=== PATIENT | female | born 1955 | race Caucasian/White ===

== ENCOUNTER → 2018-03-12 16:49 | Outpatient (CLI) | payer BC, SELFPAY | PROVIDERS: Visit Provider Physician Assistant | DX: N89.8 Other specified noninflammatory disorders of vagina (principal) | CPT/HCPCS: 87210 ==

== ENCOUNTER → 2018-04-19 08:31 | Outpatient (CLI) | payer BC, SELFPAY ==
[2018-04-19 09:39] LABS: Appearance Urine UA CLEAR; Bilirubin Urine UA NEGATIVE (NEGATIVE); Color Urine UA YELLOW; Glucose Urine UA NEGATIVE (Negative); Ketones Urine UA NEGATIVE (NEGATIVE); Leukocyte Esterase Urine UA TRACE (NEGATIVE); Nitrite Urine UA NEGATIVE (Negative); Occult Blood Urine UA TRACE-LYSED (Negative); Protein Urine UA NEGATIVE (Negative); Specific Gravity Urine UA 1.025 (1.000-1.035); Urobilinogen Urine UA 0.2 E.U./dL (0.2); pH Urine UA 5.5 (4.5-8.0)
[2018-04-19 09:44] LABS: Add Manual Diff / Slide Review NO; Basophils Percent Auto 1.3 % (0-2); Eosinophils Percent Auto 3.5 % (2-4); Hematocrit 39.7 % (36-46); Hemoglobin 13.1 g/dL (12.0-16.0); Lymphocytes Percent Auto 33.3 % (25-40); Mean Corpuscular HGB Conc 33.2 % (30-36); Mean Corpuscular Hemoglobin 29.5 PG (26-34); Monocytes Percent Auto 8.1 % (3-14); Neutrophils Absolute Auto 2900 /uL (1500-7000); Neutrophils Percent Auto 53.8 % (50-75); Platelet Count 231 X10^3/uL (150-400); Red Blood Cell Count 4.46 X10^6/uL (4.0-5.2); Red Cell Distribution Width 13.4 % (11.6-14.8); White Blood Cell Count 5.4 X10^3/uL (4.5-11.0)
[2018-04-19 09:45] LABS: RBC Urine None Seen (0-5/HPF)
[2018-04-19 09:48] LABS: Amorphous Sediment Urine 1+; Bacteria Urine Few (2-10); Culture Indicated Urine Specimen Cultured; Mucus Urine 1+ (Negative); WBC Urine 0-1/HPF (0-5/HPF)
[2018-04-19 09:59] LABS: Alanine Aminotransferase 26 IU/L (9-52); Albumin 4.1 g/dL (3.5-5.0); Albumin Globulin Ratio 1.6 (1.0-2.8); Alkaline Phosphatase 55 U/L (38-126); Aspartate Aminotransferase 27 IU/L (14-36); BUN Creatinine Ratio 26.7 (6-22); Bilirubin Total 0.5 mg/dL (0.2-1.3); Blood Urea Nitrogen 16 mg/dL (7-17); Calcium 9.1 mg/dL (8.4-10.2); Carbon Dioxide 29 mmol/L (22-32); Chloride 103 mmol/L (98-107); Cholesterol 226 mg/dL (140-199); Estimated Glomerular Filt Rate > 60.0 mL/min (>60); Globulin 2.5 g/dL (1.7-4.1); Glucose 87 mg/dL (80-110); HDL Cholesterol 92 mg/dL (40-60); HEMOLYSIS < 15 (0-50); LDL Cholesterol Calculated 123 mg/dL (<100); Potassium 4.3 mmol/L (3.4-5.1); Sodium 139 mmol/L (137-145); Total Protein 6.6 g/dL (6.3-8.2); Triglycerides 55 mg/dL (35-150)
[2018-04-19 11:19] LABS: Thyroid Stimulating Hormone 2.93 uIU/mL (0.47-4.68)
== END ==
PROVIDERS: Visit Provider Family Medicine
DX: G47.00 Insomnia, unspecified (principal); I10 Essential (primary) hypertension; Z13.220 Encounter for screening for lipoid disorders; Z13.29 Encounter for screening for other suspected endocrine disorder
CPT/HCPCS: 36415; 80053; 80061; 81003; 81015; 84443; 85025; 87086

== ENCOUNTER → 2018-06-25 14:11 | Outpatient (CLI) | payer BC, SELFPAY ==
--- NOTE | 2018-06-25 14:13 | DI.MG.S_ITS ---
BILATERAL DIGITAL SCREENING MAMMOGRAM 3D/2D WITH CAD: 06/25/2018 CLINICAL: Routine screening. Baseline exam. Family history of breast cancer. No prior exams were available for comparison. There are scattered fibroglandular elements in both breasts. Current study was also evaluated with a Computer Aided Detection (CAD) system. There is an equal density asymmetry in the left breast posterior depth lateral region seen on the craniocaudal view only. No other significant masses, calcifications, or other findings are seen in either breast. IMPRESSION: INCOMPLETE: NEEDS ADDITIONAL IMAGING EVALUATION The equal density asymmetry in the left breast is indeterminate. Additional views with possible ultrasound are recommended. This exam was interpreted at Station ID: [id number]. NOTE: For mammograms, a report in lay terms will be sent to the patient. Approximately 15% of breast malignancies will not be visualized mammographically. In the management of a palpable breast mass, a negative mammogram must not discourage biopsy of a clinically suspicious lesion. Electronically Signed By: Gino schmitt/petrona:06/25/2018 17:00:05 letter sent: Additional Imaging Needed ACR BI-RADS Category 0: Incomplete [id number]
== END ==
PROVIDERS: PCP Family Medicine; Visit Provider Family Medicine
DX: Z12.31 Encounter for screening mammogram for malignant neoplasm of breast (principal); Z80.3 Family history of malignant neoplasm of breast
CPT/HCPCS: 77063; 77067

== ENCOUNTER → 2018-10-12 07:58 | Outpatient (CLI) | payer BC, SELFPAY ==
--- NOTE | 2018-10-12 08:00 | DI.US.S_ITS ---
ULTRASOUND OF LEFT BREAST: 10/12/2018 CLINICAL: Additional evaluation requested from prior study. Comparison is made to exams dated: 10/12/2018 mammogram and 06/25/2018 mammogram - [facility]. Color flow and real-time ultrasound of the left breast were performed. Tavera scale images of the real-time examination were reviewed. Normal fibroglandular tissue is seen in the upper outer quadrant. No abnormalities were seen sonographically in the left breast. IMPRESSION: PROBABLY BENIGN Partially resolved mammographic asymmetry has no sonographic correlate. A follow-up left mammogram in 6 months is recommended to demonstrate stability of this area. Findings and recommendations were conveyed to the patient at time of exam. This exam was interpreted at Station ID: [id number]. Electronically Signed By: Elean hermosillo/:10/12/2018 09:16:50 letter sent: Followup Recommended Ultrasound BI-RADS: 3 Probably benign
--- NOTE | 2018-10-12 08:00 | DI.MG.S_ITS ---
UNILATERAL LEFT DIGITAL DIAGNOSTIC MAMMOGRAM 3D/2D WITH ADDITIONAL VIEWS: 10/12/2018 CLINICAL: Additional evaluation requested from prior study. Comparison is made to exam dated: 06/25/2018 [facility]. There are scattered fibroglandular elements in left breast. There is an equal density asymmetry in the left breast posterior depth lateral region seen on the craniocaudal view only on screening mammography. With focal spot compression, and additional views, this abnormality partially resolves. No associated architectural distortion. No other significant masses or calcifications are seen in the breast. IMPRESSION: INCOMPLETE: NEEDS ADDITIONAL IMAGING EVALUATION Partial resolution of screening mammography abnormality with additional views. Ultrasound evaluation to confirm resolution is recommended and was performed immediately following this exam. This exam was interpreted at Station ID: [id number]. NOTE: For mammograms, a report in lay terms will be sent to the patient. Approximately 15% of breast malignancies will not be visualized mammographically. In the management of a palpable breast mass, a negative mammogram must not discourage biopsy of a clinically suspicious lesion. Electronically Signed By: Elena hermosillo/:10/12/2018 09:14:00 ACR BI-RADS Category 0: Incomplete [id number]
== END ==
PROVIDERS: PCP Family Medicine; Visit Provider Family Medicine
DX: R92.8 Other abnormal and inconclusive findings on diagnostic imaging of breast (principal); N64.89 Other specified disorders of breast
CPT/HCPCS: 76642; 77065; G0279

== ENCOUNTER 2019-08-25 11:24 | Observation (INO) | payer MEDICARE, OTHER, SELFPAY ==
[2019-08-25] VITALS (10 sets, daily range): BP systolic 121–153; BP diastolic 72–101; PULSE 45–84; RESP 12–20; TEMP 36.2–36.9; O2SAT 96–100; BMI 24.0
--- NOTE | 2019-08-25 11:31 | DI.RAD.S_ITS ---
PROCEDURE: XR CHEST 1V INDICATIONS: chest pain TECHNIQUE: One view of the chest was acquired. COMPARISON: None. FINDINGS: Surgical changes and devices: None. Lungs and pleura: Lungs are clear. No pleural effusions or pneumothorax. Mediastinum: Mediastinal contours appear normal. Heart size is normal. Atherosclerotic calcification of the aortic arch is noted. Bones and chest wall: No suspicious bony lesions. Overlying soft tissues appear unremarkable. IMPRESSION: Normal portable chest for age. Dictated by: Raymundo Velasquez M.D. on 08/25/2019 at 11:24 Approved by: Raymundo Velasquez M.D. on 08/25/2019 at 11:24
[2019-08-25 11:55] LABS: Add Manual Diff / Slide Review NO; Basophils Absolute Auto 200 /uL (0-100); Basophils Percent Auto 2.3 % (0-2); Eosinophils Absolute Auto 200 /uL (0-450); Eosinophils Percent Auto 2.7 % (2-4); Hematocrit 39.8 % (36-46); Hemoglobin 13.4 g/dL (12.0-16.0); Lymphocytes Absolute Auto 1600 /uL (1100-4500); Lymphocytes Percent Auto 21.7 % (25-40); Mean Corpuscular HGB Conc 33.8 % (30-36); Mean Corpuscular Volume 88.8 fL (80-100); Monocytes Absolute Auto 500 /uL (0-900); Neutrophils Absolute Auto 5000 /uL (1500-7000); Neutrophils Percent Auto 66.3 % (50-75); Platelet Count 218 X10^3/uL (150-400); Red Blood Cell Count 4.48 X10^6/uL (4.0-5.2); Red Cell Distribution Width 13.3 % (11.6-14.8); White Blood Cell Count 7.5 X10^3/uL (4.5-11.0)
[2019-08-25 12:05] LABS: INR 0.9 (0.9-1.3); Prothrombin Time 10.7 SECONDS (10.1-12.7)
[2019-08-25 12:08] LABS: PTT Partial Thromboplastin Tim 33 SECONDS (26.4-36.2)
[2019-08-25 12:09] LABS: Alanine Aminotransferase 14 IU/L (<35); Albumin 4.4 g/dL (3.5-5.0); Albumin Globulin Ratio 1.5 (1.0-2.8); Alkaline Phosphatase 79 U/L (38-126); Aspartate Aminotransferase 28 IU/L (14-36); BUN Creatinine Ratio 23.9 (6-22); Bilirubin Total 0.3 mg/dL (0.2-1.3); Blood Urea Nitrogen 17 mg/dL (7-17); Calcium 9.9 mg/dL (8.4-10.2); Carbon Dioxide 27 mmol/L (22-32); Chloride 103 mmol/L (98-107); Creatine Kinase 114 U/L (30-135); Estimated Glomerular Filt Rate > 60.0 mL/min (>60); Globulin 2.9 g/dL (1.7-4.1); Glucose 109 mg/dL (80-110); HEMOLYSIS < 15 (0-50); Lipase 64 U/L (23-300); Potassium 4.5 mmol/L (3.4-5.1); Sodium 137 mmol/L (137-145); Total Protein 7.3 g/dL (6.3-8.2)
[2019-08-25 12:21] LABS: Troponin I < 0.012 ng/mL (0.01-0.034)
[2019-08-25 12:24] LABS: CKMB % Relative Index 0.8 % (1.5-5.0); Creatine Kinase MB 0.95 ng/mL (<2.37)
--- NOTE | 2019-08-25 12:43 | ED_ITS ---
HPI - Chest Pain <PATRICIA Asif - Last Filed: 08/25/19 22:08> General Chief Complaint: Chest Pain Stated Complaint: chest pressure x3 days Time Seen by Provider: 08/25/19 11:32 Source: patient Mode of arrival: Family Vehicle Limitations: no limitations History of Present Illness HPI narrative: 64yo female with a history of hypertension, presents to the emergency department after being seen by her PCP for intermittent chest pressure for the past 5 months. She states this started back in April but ?I did not pay attention to it because I had so much going on ?. Patient reports her dad was recently diagnosed with COVID and June, she states she had symptoms a week after (such as fatigue and headache) but those resolved. However recently she noticed that her substernal-epigastric 6/10 pain that is worsened over the past 3 days. Patient reported she noticed a increases when she walks up the stairs or takes a walker outside. She denies any shortness of breath during these episodes but does states she has intermittent nausea. Patient denies any alleviating symptoms but states and noticed it less when I am not walking ?. Patient denies diaphoresis, dizziness, abdominal pain, vomiting, diarrhea, fevers, shortness of breath, or any other concerns. Patient states she currently has 4-10 epigastric chest pressure at this time. Patient denies taking any blood thinners. Related Data Previous Rx's Medication Instructions Recorded adjuvant AS01B (PF)vial 1 of 2 0.5 ml IM ONCE #0.5 ml 04/23/18 diph,pertuss(acel),tet vac(PF) 0.5 ml IM ONCE #0.5 ml 04/23/18 fluoxetine 10 mg tablet 10 mg PO DAILY #90 tab 05/06/19 lisinopril 20 mg tablet 20 mg PO DAILY #90 tab 05/06/19 zolpidem 10 mg tablet 10 mg PO BEDTIME PRN #90 tab 07/02/19 Allergies Allergy/AdvReac Type Severity Reaction Status Date / Time No Known Drug Allergies Allergy Verified 08/25/19 11:43 Review of Systems <PATRICIA Asif - Last Filed: 08/25/19 22:08> Review of Systems Narrative: REVIEW OF SYSTEMS: GENERAL: Denies fever or chills. HENT: No head trauma, hearing loss or sore throat. EYES: No vision changes. CARDIOVASCULAR: Reports chest pressure, see HPI. RESPIRATORY: No shortness of breath or cough. GASTROINTESTINAL: No nausea, vomiting, diarrhea, or constipation. GENITOURINARY: No flank pain or dysuria. MUSCULOSKELETAL: No pain, weakness, or deformities. INTEGUMENTARY: No rash, lesions, or pruritus. NEURO: No numbness, tingling, no headaches at this time. PSYCH: Reports increased stressors, see HPI. Patient History <PATRICIA Asif - Last Filed: 08/25/19 22:08> Medical History Chicken pox (Resolved) Depression (Chronic) Hepatitis A (Resolved 1971) HTN (hypertension) (Chronic) Insomnia (Chronic) Measles (Resolved) Surgical History No history of previous surgery (Resolved 03/05/18) Family History Father Heart disease Mother Hypertension Brother No problems noted. Sister No problems noted. Sister No problems noted. Social History household members: spouse Smoking Status: Never smoker alcohol intake: current Smoking Status: Never smoker alcohol intake frequency: 0-2 drinks per day Substance Use Type: does not use Exam <PATRICIA Asif - Last Filed: 08/25/19 22:08> Initial Vital Signs Initial Vital Signs: Vital Signs Temperature 98.4 F 08/25/19 11:32 Pulse Rate 56 L 08/25/19 11:32 Respiratory Rate 20 08/25/19 11:32 Blood Pressure 153/81 H 08/25/19 11:32 Pulse Oximetry 99 08/25/19 11:32 PHYSICAL EXAMINATION: GENERAL: Well groomed, alert, and cooperative. Skinny. Answers questions promptly and appropriately. Vital signs noted. HENT: Normocephalic, atraumatic. Ear canals patent. Oral mucosa is pink and moist. EYES: Conjunctiva pink, sclera white, no periorbital swelling. CHEST: Normal to inspection and without deformities. CARDIOVASCULAR: S1 and S2 sounds normal. Regular rate and rhythm, no murmurs, clicks, or bruits. No pedal edema. RESPIRATORY: Normal respiratory rate, trachea midline, airway patent. No stridor, nasal flaring or accessory muscle use. Lungs are clear in all dennis without wheeze, rhonchi, or crackles. GASTROINTESTINAL: Bowel sounds normoactive. Abdomen is soft and non-tender. No organomegaly. MUSCULOSKELETAL: Normal gait and coordination. Equal tone and mass bilaterally. EXTREMITIES: CMS intact. Moves all extremities. SKIN: Warm, dry, soft, appropriate color for ethnicity. No lesions, rashes, or wounds. NEURO: Alert and Oriented X 3. Good coordination. No ataxia, or sensory deficits, or cognitive issues. PSYCH: Appropriate affect and mood. <Zack Mullen MD - Last Filed: 08/26/19 19:35> Initial Vital Signs Initial Vital Signs: Vital Signs Temperature 98.4 F 08/25/19 11:32 Pulse Rate 56 L 08/25/19 11:32 Respiratory Rate 20 08/25/19 11:32 Blood Pressure 153/81 H 08/25/19 11:32 Pulse Oximetry 99 08/25/19 11:32 Scores <PATRICIA Asif - Last Filed: 08/25/19 22:08> HEART Score Heart Score history: Moderately Suspicious Heart Score EKG: Normal Heart Score Age: > or = 65 years old Heart Score risk factors: 1-2 risk factors Heart Score troponin: < or = to normal limit Heart Score Total: 4 Course <PATRICIA Asif - Last Filed: 08/25/19 22:08> Course Course Narrative: 1400: Patient re-evaluated at this time, states she did not get nitroglycerin she no longer has chest pain at this time. 1420: Spoke with Dr. Carter, discussed patient's symptoms, test results, medical history. Dr. Carter accepts for admission to obs. Patient form that she will be admitted, she is agreeable to plan of care. Orders Ordered: Discontinued Medications Acetaminophen (Tylenol) 650 mg PO Q6HR PRN PRN Reason: Fever/Mild Pain (1-3) Last Admin: 08/26/19 13:38 Dose: 650 mg Documented by: Admin: 08/25/19 19:40 Dose: 650 mg Documented by: IESHA Aspirin (Aspirin Chew) 324 mg PO NOW ONE Stop: 08/25/19 12:35 Last Admin: 08/25/19 13:00 Dose: 324 mg Documented by: JENNIFER Enoxaparin Sodium (Lovenox) 40 mg SUBCUT DAILY [facility] Sodium Chloride (Normal Saline 0.9%) 1,000 mls @ 125 mls/hr IV CONT SERENITY Last Admin: 08/26/19 06:21 Dose: 125 mls/hr Documented by: Infusion: 08/26/19 06:21 Dose: 125 mls/hr Documented by: Admin: 08/25/19 23:50 Dose: 125 mls/hr Documented by: MIKI Ketorolac Tromethamine (Toradol) 30 mg IV NOW ONE Stop: 08/26/19 17:43 Nitroglycerin (Nitrostat) 0.3 mg SL NOW ONE Stop: 08/25/19 12:35 Last Admin: 08/25/19 12:37 Dose: Not Given Documented by: JENNIFER Nitroglycerin (Nitrostat) 0.4 mg SL [id number] PRN PRN Reason: Chest Pain Last Admin: 08/26/19 00:01 Dose: 0.4 mg Documented by: MIKI Sodium Chloride (Normal Saline 0.9% Flush) 10 ml IV PRN PRN PRN Reason: Flush Sodium Chloride (Normal Saline 0.9% Flush) 10 ml IV BID [facility] Last Admin: 08/26/19 08:27 Dose: 10 ml Documented by: Admin: 08/25/19 19:40 Dose: 10 ml Documented by: IESHA Sodium Chloride (Deep Sea) 1 spray NASAL PRN PRN PRN Reason: Nasal Congestion Last Admin: 08/25/19 23:51 Dose: 1 spray Documented by: MIKI Consultations Consultation #1: Patient staffed with Dr. Mullen, discussed symptoms, test, test results, and plan of care; suggest admission due to symptoms of unstable angina.. Vital Signs Vital signs: Vital Signs - 8 hr 08/25/19 14:15 Pulse Rate 65 Respiratory Rate 18 Blood Pressure [Left Arm] 132/72 Pulse Oximetry 98 <Zack Mullen MD - Last Filed: 08/26/19 19:35> Orders Ordered: Discontinued Medications Acetaminophen (Tylenol) 650 mg PO Q6HR PRN PRN Reason: Fever/Mild Pain (1-3) Last Admin: 08/26/19 13:38 Dose: 650 mg Documented by: Admin: 08/25/19 19:40 Dose: 650 mg Documented by: IESHA Aspirin (Aspirin Chew) 324 mg PO NOW ONE Stop: 08/25/19 12:35 Last Admin: 08/25/19 13:00 Dose: 324 mg Documented by: JENNIFER Enoxaparin Sodium (Lovenox) 40 mg SUBCUT DAILY [facility] Sodium Chloride (Normal Saline 0.9%) 1,000 mls @ 125 mls/hr IV CONT SERENITY Last Admin: 08/26/19 06:21 Dose: 125 mls/hr Documented by: Infusion: 08/26/19 06:21 Dose: 125 mls/hr Documented by: Admin: 08/25/19 23:50 Dose: 125 mls/hr Documented by: MIKI Ketorolac Tromethamine (Toradol) 30 mg IV NOW ONE Stop: 08/26/19 17:43 Nitroglycerin (Nitrostat) 0.3 mg SL NOW ONE Stop: 08/25/19 12:35 Last Admin: 08/25/19 12:37 Dose: Not Given Documented by: JENNIFER Nitroglycerin (Nitrostat) 0.4 mg SL [id number] PRN PRN Reason: Chest Pain Last Admin: 08/26/19 00:01 Dose: 0.4 mg Documented by: MIKI Sodium Chloride (Normal Saline 0.9% Flush) 10 ml IV PRN PRN PRN Reason: Flush Sodium Chloride (Normal Saline 0.9% Flush) 10 ml IV BID [facility] Last Admin: 08/26/19 08:27 Dose: 10 ml Documented by: Admin: 08/25/19 19:40 Dose: 10 ml Documented by: IESHA Sodium Chloride (Deep Sea) 1 spray NASAL PRN PRN PRN Reason: Nasal Congestion Last Admin: 08/25/19 23:51 Dose: 1 spray Documented by: MIKI Vital Signs Vital signs: Vital Signs - 8 hr 08/25/19 14:15 Pulse Rate 65 Respiratory Rate 18 Blood Pressure [Left Arm] 132/72 Pulse Oximetry 98 MDM - Chest Pain <PATRICIA Asif - Last Filed: 08/25/19 22:08> Medical Records Data Attestation: I reviewed the patient's medical records. Lab Data Attestation: I reviewed the patient's lab results. Result diagrams: 08/26/19 05:55 08/26/19 05:55 Labs: Lab Results 08/25/19 08/25/19 08/25/19 Range/Units 11:45 11:45 11:45 WBC 7.5 (4.5-11.0) X10^3/uL RBC 4.48 (4.0-5.2) X10^6/uL Hgb 13.4 (12.0-16.0) g/dL Hct 39.8 (36-46) % MCV 88.8 (80-100) fL MCH 30.0 (26-34) PG MCHC 33.8 (30-36) % RDW 13.3 (11.6-14.8) % Plt Count 218 (150-400) X10^3/uL Neut % (Auto) 66.3 (50-75) % Lymph % (Auto) 21.7 L (25-40) % Ellsworth % (Auto) 7.0 (3-14) % Eos % (Auto) 2.7 (2-4) % Baso % (Auto) 2.3 H (0-2) % Neut # (Auto) 5000 (7930-6787) /uL Lymph # (Auto) 1600 (1327-7572) /uL Ellsworth # (Auto) 500 (0-900) /uL Eos # (Auto) 200 (0-450) /uL Baso # (Auto) 200 H (0-100) /uL PT 10.7 (10.1-12.7) SECONDS INR 0.9 (0.9-1.3) APTT 33 (26.4-36.2) SECONDS Sodium 137 (137-145) mmol/L Potassium 4.5 (3.4-5.1) mmol/L Chloride 103 (98-107) mmol/L Carbon Dioxide 27 (22-32) mmol/L BUN 17 (7-17) mg/dL Creatinine 0.71 (0.52-1.04) mg/dL Estimated GFR > 60.0 (>60) mL/min BUN/Creatinine Ratio 23.9 H (6-22) Glucose 109 (80-110) mg/dL Calcium 9.9 (8.4-10.2) mg/dL Total Bilirubin 0.3 (0.2-1.3) mg/dL AST 28 (14-36) IU/L ALT 14 (<35) IU/L Alkaline Phosphatase 79 (38-126) U/L Total Creatine Kinase 114 (30-135) U/L CK-MB (CK-2) 0.95 (<2.37) ng/mL CK-MB (CK-2) Rel Index 0.8 L (1.5-5.0) % Troponin I < 0.012 (0.01-0.034) ng/mL Total Protein 7.3 (6.3-8.2) g/dL Albumin 4.4 (3.5-5.0) g/dL Globulin 2.9 (1.7-4.1) g/dL Albumin/Globulin Ratio 1.5 (1.0-2.8) Lipase 64 (23-300) U/L COVID-19 PCR (Not Detect) 08/25/19 08/25/19 Range/Units 11:45 13:05 WBC (4.5-11.0) X10^3/uL RBC (4.0-5.2) X10^6/uL Hgb (12.0-16.0) g/dL Hct (36-46) % MCV (80-100) fL MCH (26-34) PG MCHC (30-36) % RDW (11.6-14.8) % Plt Count (150-400) X10^3/uL Neut % (Auto) (50-75) % Lymph % (Auto) (25-40) % Ellsworth % (Auto) (3-14) % Eos % (Auto) (2-4) % Baso % (Auto) (0-2) % Neut # (Auto) (3933-4468) /uL Lymph # (Auto) (5488-4287) /uL Ellsworth # (Auto) (0-900) /uL Eos # (Auto) (0-450) /uL Baso # (Auto) (0-100) /uL PT (10.1-12.7) SECONDS INR (0.9-1.3) APTT (26.4-36.2) SECONDS Sodium (137-145) mmol/L Potassium (3.4-5.1) mmol/L Chloride (98-107) mmol/L Carbon Dioxide (22-32) mmol/L BUN (7-17) mg/dL Creatinine (0.52-1.04) mg/dL Estimated GFR (>60) mL/min BUN/Creatinine Ratio (6-22) Glucose (80-110) mg/dL Calcium (8.4-10.2) mg/dL Total Bilirubin (0.2-1.3) mg/dL AST (14-36) IU/L ALT (<35) IU/L Alkaline Phosphatase (38-126) U/L Total Creatine Kinase (30-135) U/L CK-MB (CK-2) (<2.37) ng/mL CK-MB (CK-2) Rel Index (1.5-5.0) % Troponin I < 0.012 (0.01-0.034) ng/mL Total Protein (6.3-8.2) g/dL Albumin (3.5-5.0) g/dL Globulin (1.7-4.1) g/dL Albumin/Globulin Ratio (1.0-2.8) Lipase (23-300) U/L COVID-19 PCR Not detected (Not Detect) Imaging Data Chest x-ray: Radiologist's Impression: [place] [address] XRay Report Signed Patient: Ceci Boss R#: [id number] : 5Acct:[id number] Age/Sex: 64 / FDate of Service: 08/25/19 Loc: ED Accession Number: [id number] Procedure: XR chest 1V Ordering Provider: Zack Mullen MD PROCEDURE: XR CHEST 1V INDICATIONS: chest pain TECHNIQUE: One view of the chest was acquired. COMPARISON: None. FINDINGS: Surgical changes and devices: None. Lungs and pleura: Lungs are clear. No pleural effusions or pneumothorax. Mediastinum: Mediastinal contours appear normal. Heart size is normal. Atherosclerotic calcification of the aortic arch is noted. Bones and chest wall: No suspicious bony lesions. Overlying soft tissues appear unremarkable. IMPRESSION: Normal portable chest for age. Dictated by: Raymundo Velasquez M.D. on 08/25/2019 at 11:24 Approved by: Raymundo Velasquez M.D. on 08/25/2019 at 11:24 ECG Data Interpretation: 1134: Sinus bradycardia. Rate 53, DC interval 148. QTC 420. No ST elevation or ST depression. No T-wave abnormality. Artifact noted in V3. EKG also viewed by Dr. Mullen per protocol. 1346: Sinus bradycardia. Rate 56, DC interval 152, QTC 440. No ST elevation or ST depression. No T-wave abnormality. Possible artifact versus 1 isolated inverted T-wave in lead III. EKG also viewed by Dr. Mullen per protocol. MDM Narrative Medical decision making narrative: 64-year-old female presenting to the emergency department for intermittent chest pressure that is worse over the past few days particularly worse with exertion. Patient's history is concerning unstable angina. Patient had negative repeat troponins, non remarkable serial EKGs, laboratory work, and chest x-ray. Patient's heart score was 4. Due to concerning symptoms that were worse with exertion, hospitalist was consulted. Patient was admitted to observation for further cardiac testing such as a stress test. Patient was agreed to plan of care. Patient was also tested for COVID-19 due to recent exposure however, this is less likely due to lack of other symptoms such as cough or shortness of breath. Less concern for gastric etiology due to intermittent nature of discomfort that is worse with exertion. <Zack Mullen MD - Last Filed: 08/26/19 19:35> Lab Data Labs: Lab Results 08/25/19 08/25/19 08/25/19 Range/Units 11:45 11:45 11:45 WBC 7.5 (4.5-11.0) X10^3/uL RBC 4.48 (4.0-5.2) X10^6/uL Hgb 13.4 (12.0-16.0) g/dL Hct 39.8 (36-46) % MCV 88.8 (80-100) fL MCH 30.0 (26-34) PG MCHC 33.8 (30-36) % RDW 13.3 (11.6-14.8) % Plt Count 218 (150-400) X10^3/uL Neut % (Auto) 66.3 (50-75) % Lymph % (Auto) 21.7 L (25-40) % Ellsworth % (Auto) 7.0 (3-14) % Eos % (Auto) 2.7 (2-4) % Baso % (Auto) 2.3 H (0-2) % Neut # (Auto) 5000 (1704-0877) /uL Lymph # (Auto) 1600 (5215-6042) /uL Ellsworth # (Auto) 500 (0-900) /uL Eos # (Auto) 200 (0-450) /uL Baso # (Auto) 200 H (0-100) /uL PT 10.7 (10.1-12.7) SECONDS INR 0.9 (0.9-1.3) APTT 33 (26.4-36.2) SECONDS Sodium 137 (137-145) mmol/L Potassium 4.5 (3.4-5.1) mmol/L Chloride 103 (98-107) mmol/L Carbon Dioxide 27 (22-32) mmol/L BUN 17 (7-17) mg/dL Creatinine 0.71 (0.52-1.04) mg/dL Estimated GFR > 60.0 (>60) mL/min BUN/Creatinine Ratio 23.9 H (6-22) Glucose 109 (80-110) mg/dL Calcium 9.9 (8.4-10.2) mg/dL Total Bilirubin 0.3 (0.2-1.3) mg/dL AST 28 (14-36) IU/L ALT 14 (<35) IU/L Alkaline Phosphatase 79 (38-126) U/L Total Creatine Kinase 114 (30-135) U/L CK-MB (CK-2) 0.95 (<2.37) ng/mL CK-MB (CK-2) Rel Index 0.8 L (1.5-5.0) % Troponin I < 0.012 (0.01-0.034) ng/mL Total Protein 7.3 (6.3-8.2) g/dL Albumin 4.4 (3.5-5.0) g/dL Globulin 2.9 (1.7-4.1) g/dL Albumin/Globulin Ratio 1.5 (1.0-2.8) Lipase 64 (23-300) U/L COVID-19 PCR (Not Detect) 08/25/19 08/25/19 Range/Units 11:45 13:05 WBC (4.5-11.0) X10^3/uL RBC (4.0-5.2) X10^6/uL Hgb (12.0-16.0) g/dL Hct (36-46) % MCV (80-100) fL MCH (26-34) PG MCHC (30-36) % RDW (11.6-14.8) % Plt Count (150-400) X10^3/uL Neut % (Auto) (50-75) % Lymph % (Auto) (25-40) % Ellsworth % (Auto) (3-14) % Eos % (Auto) (2-4) % Baso % (Auto) (0-2) % Neut # (Auto) (6600-7169) /uL Lymph # (Auto) (8016-4058) /uL Ellsworth # (Auto) (0-900) /uL Eos # (Auto) (0-450) /uL Baso # (Auto) (0-100) /uL PT (10.1-12.7) SECONDS INR (0.9-1.3) APTT (26.4-36.2) SECONDS Sodium (137-145) mmol/L Potassium (3.4-5.1) mmol/L Chloride (98-107) mmol/L Carbon Dioxide (22-32) mmol/L BUN (7-17) mg/dL Creatinine (0.52-1.04) mg/dL Estimated GFR (>60) mL/min BUN/Creatinine Ratio (6-22) Glucose (80-110) mg/dL Calcium (8.4-10.2) mg/dL Total Bilirubin (0.2-1.3) mg/dL AST (14-36) IU/L ALT (<35) IU/L Alkaline Phosphatase (38-126) U/L Total Creatine Kinase (30-135) U/L CK-MB (CK-2) (<2.37) ng/mL CK-MB (CK-2) Rel Index (1.5-5.0) % Troponin I < 0.012 (0.01-0.034) ng/mL Total Protein (6.3-8.2) g/dL Albumin (3.5-5.0) g/dL Globulin (1.7-4.1) g/dL Albumin/Globulin Ratio (1.0-2.8) Lipase (23-300) U/L COVID-19 PCR Not detected (Not Detect) Discharge Plan Departure Patient Disposition: Admitted as Observation Clinical Impression: Chest pain on exertion, Unstable angina Discharge Date/Time: 08/25/19 15:42 Instructions: DI for Chest Pain Referrals: Minor Swartz DO [Primary Care Provider] - Admit Date/Time: 08/25/19 14:18 Admit Provider: Dickson Carter
[2019-08-25] MEDS: ASPIRIN 81 MG CHEW TAB 324 MG PO (13:00)
[2019-08-25 13:48] LABS: Troponin I < 0.012 ng/mL (0.01-0.034)
--- NOTE | 2019-08-25 17:22 | PC.NURSE ---
Addendum entered by Georgia Garduno R.N. 08/25/19 23:24: IV fluids begun as ordered. Addendum entered by Georgia Garduno R.N. 08/25/19 22:43: Pt reports unable to breathe through nares right now and so refuses oxygen ordered by PATRICIA Messer. Awaiting pharmacy verification of nasal spray. Pt reports feeling hot and puts hand to sternum. States does not feel hot any other parts of body. HEALTH CARE CONSULTANT was made aware. Room air 99%. Reports feels short of breath with standing for orthostatic BP and HR. Addendum entered by Georgia Garduno R.N. 08/25/19 21:41: Tylenol for c/o tooth discomfort. PRINCIPAL CONSULTANT, Krystle, reports to this medical underwriter pt's HR has been as low as 44. ER report has stated the same for this medical underwriter while pt in [facility] consults with Hospitalist Gui. Pt is awake, alert, conversant. R.T. in to perform EKG. Original Note: Pt to room 217 via wheelchair from [facility]. Placed in rule out covid isolation with explanation. Denies chest pain. Admits to difficulty with taking deep breath and places hand on sternum. Pt is able to speak in full sentences and manage own airway without difficulty or dyspnea. Denies nausea. No peripheral edema. Tele placed on pt and ICU informed. Awaiting Dr. Carter to see patient.
--- NOTE | 2019-08-25 18:53 | PM.HP.1 ---
History of Present Illness History of Present Illness Date Patient Seen: 08/25/19 Time Patient Seen: 18:53 Chief complaint: chest pressure x3 days Narrative: Ceci Boss is a 64-year-old female with past medical history of hypertension, insomnia, depression who presented with worsening dyspnea with chest pressure on exertion over the past 3 days. Patient states that she has noticed over the past 3 days that when climbing up stairs or exerting herself she gets easily fatigued, with a chest tightness substernally, and shortness of breath. Occasionally she gets palpitations as well. She denies any diaphoresis or nausea, vomiting. She denies any radiation into her neck or jaw, into her left arm. She denies any cough, fever, chills, sputum production, headache, vision changes, orthopnea, syncope, lower extremity edema. Her father who has diabetes, heart disease, and end-stage kidney disease on dialysis had COVID-19 in June is still recovering, she has not been tested previously. In the ED, patient was mildly hypertensive, slightly bradycardic, but vitals were otherwise unremarkable. EKG x2 showed normal sinus rhythm with mild left axis deviation, no concerning ST depressions or elevations and no evidence of active ischemia. Chest x-ray was unremarkable. Laboratory evaluation showed an unremarkable CBC, normal coagulation studies, and an unremarkable chemistry evaluation including a negative troponin Patient History Medical History Chicken pox (Resolved) Depression (Chronic) Hepatitis A (Resolved 1971) HTN (hypertension) (Chronic) Insomnia (Chronic) Measles (Resolved) Surgical History No history of previous surgery (Resolved 03/05/18) Family & Social History Family History Father Heart disease Mother Hypertension Brother No problems noted. Sister No problems noted. Sister No problems noted. Social History: household members spouse Prior Living Arrangements House Safety & Behavioral: Feels Safe in Current Yes Environment Been Physically Hurt or No Threatened By a Person Suicidal Ideation Description None Suicide Plan Description No Plan Tobacco & Substance use: Smoking Status Never smoker alcohol intake current alcohol intake frequency holiday/special occasion Substance Use Type does not use Meds Home Medications and Allergies Home Medications Medication Instructions Recorded Confirmed Type adjuvant AS01B (PF)vial 1 of 2 0.5 ml IM ONCE #0.5 ml 04/23/18 08/25/19 Rx diph,pertuss(acel),tet vac(PF) 0.5 ml IM ONCE #0.5 ml 04/23/18 08/25/19 Rx fluoxetine 10 mg tablet 10 mg PO DAILY #90 tab 05/06/19 08/25/19 Rx lisinopril 20 mg tablet 20 mg PO DAILY #90 tab 05/06/19 08/25/19 Rx zolpidem 10 mg tablet 10 mg PO BEDTIME PRN #90 tab 07/02/19 08/25/19 Rx Allergies Allergy/AdvReac Type Severity Reaction Status Date / Time No Known Drug Allergies Allergy Verified 08/25/19 11:43 Review of Systems Review of Systems Narrative: All other systems reviewed with the patient and are negative unless otherwise stated. Exam Vital Signs (past 8 hours): - 08/25/19 11:32 08/25/19 12:15 08/25/19 13:07 Temperature 98.4 F Pulse Rate 56 L 49 L 51 L Respiratory Rate 20 18 12 Blood Pressure 153/81 H Blood Pressure [Left Arm] 129/74 121/74 Pulse Oximetry 99 97 100 08/25/19 14:15 08/25/19 15:30 08/25/19 16:15 Temperature 97.5 F L Pulse Rate 65 49 L 60 Respiratory Rate 18 16 18 Blood Pressure 141/98 H Blood Pressure [Left Arm] 132/72 129/74 Pulse Oximetry 98 98 96 Oxygen Delivery Method Room Air Oxygen Flow Rate 0 Narrative Exam Narrative: GENERAL APPEARANCE: Well developed, well nourished, in no acute distress. SKIN: Inspection of the skin reveals no rashes, ulcerations or petechiae. HEENT: Normocephalic atraumatic, extraocular muscles are intact, oropharynx is clear and mucous membranes are moist, neck is supple without adenopathy NECK: Supple and symmetric. There was no thyroid enlargement, and no tenderness, or masses were felt. CHEST: Normal AP diameter and normal contour without any kyphoscoliosis. LUNGS: Auscultation of the lungs revealed no wheezes, rhonchi, or rales. CARDIOVASCULAR: There was a regular rate and rhythm without any murmurs, gallops, rubs. Peripheral pulses were 2+ and symmetric. ABDOMEN: Soft and nontender with normal bowel sounds. No ascites was noted. MUSCULOSKELETAL: There was no tenderness or effusions noted. Muscle strength and tone were normal. EXTREMITIES: No cyanosis, clubbing or edema. NEUROLOGIC: Alert and oriented x 3. Normal affect. Gait was normal. Strength is +5/5 in the Upper Extremities and Lower Extremities Bilaterally. Sensation to touch was normal. Objective Labs Result Diagrams: 08/25/19 11:45 08/25/19 11:45 Labs: Laboratory Results - last 24 hr 08/25/19 08/25/19 08/25/19 11:45 11:45 11:45 WBC 7.5 RBC 4.48 Hgb 13.4 Hct 39.8 MCV 88.8 MCH 30.0 MCHC 33.8 RDW 13.3 Plt Count 218 Neut % (Auto) 66.3 Lymph % (Auto) 21.7 L [place] % (Auto) 7.0 Eos % (Auto) 2.7 Baso % (Auto) 2.3 H Neut # (Auto) 5000 Lymph # (Auto) 1600 [place] # (Auto) 500 Eos # (Auto) 200 Baso # (Auto) 200 H PT 10.7 INR 0.9 APTT 33 Sodium 137 Potassium 4.5 Chloride 103 Carbon Dioxide 27 BUN 17 Creatinine 0.71 Estimated GFR > 60.0 BUN/Creatinine Ratio 23.9 H Glucose 109 Calcium 9.9 Total Bilirubin 0.3 AST 28 ALT 14 Alkaline Phosphatase 79 Total Creatine Kinase 114 CK-MB (CK-2) 0.95 CK-MB (CK-2) Rel Index 0.8 L Troponin I < 0.012 Total Protein 7.3 Albumin 4.4 Globulin 2.9 Albumin/Globulin Ratio 1.5 Lipase 64 08/25/19 11:45 WBC RBC Hgb Hct MCV MCH MCHC RDW Plt Count Neut % (Auto) Lymph % (Auto) [place] % (Auto) Eos % (Auto) Baso % (Auto) Neut # (Auto) Lymph # (Auto) [place] # (Auto) Eos # (Auto) Baso # (Auto) PT INR APTT Sodium Potassium Chloride Carbon Dioxide BUN Creatinine Estimated GFR BUN/Creatinine Ratio Glucose Calcium Total Bilirubin AST ALT Alkaline Phosphatase Total Creatine Kinase CK-MB (CK-2) CK-MB (CK-2) Rel Index Troponin I < 0.012 Total Protein Albumin Globulin Albumin/Globulin Ratio Lipase Assessment & Plan Assessment & Plan narrative: Ceci Boss is a 64-year-old female with past medical history of hypertension, insomnia, depression who presented with worsening dyspnea with chest pressure on exertion over the past 3 days, concerning for stable angina. She is admitted under observation status for a nuclear stress test hopefully tomorrow. 1. Chest pain, acute, present on admission -symptoms concerning for cardiac ischemia with stable angina. COVID-19 testing was sent in the emergency room given family contact with confirmed case, result pending -troponin negative x1 in the emergency room, will repeat 1 now for further ACS evaluation. EKG is unremarkable with normal sinus rhythm, mild left axis deviation, but no ST depression or elevation and no concerning evidence of ischemia. -continue telemetry monitoring -will obtain echocardiogram in the morning -will order nuclear stress testing for tomorrow as well -NPO at midnight -risk stratification labs with A1c, TSH, fasting lipid panel -patient was given full-dose aspirin in the emergency room 2. Hypertension, present on admission -continue home lisinopril 3. Depression, stable -continue home fluoxetine Code: Full Dispo: Admitted under observation status as her stay is not expected to exceed 2 midnights. DVT: SCDs Quality VTE Deep Vein Thrombosis/Pulmonary Embolism Present on Admission: No
--- NOTE | 2019-08-25 19:21 | DI.ECHO.S_ITS ---
[place] +---------+ Hospital +---------+ : : [address] : : : : [id number] : : : : Phone: [phone] Echocardiogram Report + + :Name: CHIP HAND Study Date: 08/26/2019 Height: 63 in : :[facility] Weight: 135 lb : : Gender: Female BSA: 1.6 m2 : :: 1955 Age: 64 yrs BP: 110/63 mmHg: :Reason For Study: chest pain : :Ordering Physician: Alicia : :Hospitalist Performed By: Kayley Acevedo : :Referring: HUA GUTHRIE : + + Interpretation Summary 1) Normal left ventricular thickness, size, wall motion, and systolic function (EF 60-65%). 2) Normal right ventricular size and function. 3) No significant valvular abnormalities. 4) No prior Echo available for comparison. Procedure: A two-dimensional transthoracic echocardiogram with color flow and Doppler was performed. The study quality was technically adequate. There is no prior echocardiogram noted for this patient. The patient was in sinus bradycardia with heart rates between 54-62 bpm during the exam. Left Ventricle: The left ventricle is normal in size and wall thickness. The ejection fraction is estimated to be 60-65%. Global longitudinal strain average of -25.1%. Left ventricular wall motion is normal. Right Ventricle: The right ventricle is normal in size and function. Atria: The left atrium is mildly dilated. The right atrium is normal in size. There is no Doppler evidence for an interatrial shunt. Mitral Valve: The mitral valve is normal in structure and function. There is trace mitral regurgitation. Aortic Valve: The aortic valve is trileaflet. The aortic valve opens well. There is no aortic valve stenosis. No aortic regurgitation is present. Tricuspid Valve: The tricuspid valve is normal in structure and function. There is mild tricuspid regurgitation. The right ventricular systolic pressure is estimated to be at least 27 mmHg based on an estimated right atrial pressure of 3 mm Hg. Pulmonic Valve: The pulmonic valve is normal in structure and function. There is trace pulmonic regurgitation. Great Vessels: The aortic root is normal size. The ascending aorta is at the upper limits of normal in size. The IVC is of normal diameter and collapses greater than 50% with a sniff. This suggests a low right atrial pressure of 3 mm Hg. Pericardium/ Pleura There is no pericardial effusion. There is no pleural effusion. MMode/2D Measurements & Calculations LVIDd: 4.8 cm LVOT diam: 2.2 cm LVIDs: 3.3 cm Ao root diam: 3.2 cm FS: 32.5 % asc Aorta Diam: 3.7 cm EPSS: 0.51 cm Ao Arch Diam (Prox Trans): 2.3 cm IVSd: 0.68 cm LVPWd: 0.67 cm LV sabillon. diameter/BSA (cm/m^2): 3.0 LV sys. diameter/BSA (cm/m^2): 2.0 LA A2 area: 20.5 cm2 RA long axis: 4.7 cm LA A4 area: 16.6 cm2 RA area: 14.1 cm2 LA length (vol): 5.2 cm RA vol: 35.9 ml LA vol: 56.0 ml RA : 21.9 ml/m2 LA vol index: 34.2 ml/m2 IVC diam: 1.4 cm RVD1 (basal): 3.3 cm TAPSE: 2.1 cm Doppler Measurements & Calculations Ao V2 max: 124.5 cm/sec LVOT Max Broderick: 82.8 cm/sec Ao V2 mean: 95.0 cm/sec LV V1 max P.7 mmHg Ao max P.2 mmHg LV V1 VTI: 24.1 cm Ao mean P.8 mmHg PETER(I,D): 3.0 cm2 Ao V2 VTI: 30.4 cm PETER(V,D): 2.5 cm2 sev ratio: 0.79 PETER indexed to BSA (cm^2/m^2): 1.8 MV E max broderick: 80.4 cm/sec TR max broderick: 242.8 cm/sec MV A max broderick: 66.5 cm/sec TR max P.6 mmHg MV E/A: 1.2 PA V2 max: 74.4 cm/sec Med Peak E' Broderick: 7.4 cm/sec PA V2 mean: 52.4 cm/sec E/E' med: 10.9 PA mean P.3 mmHg Lat Peak E' Broderick: 9.4 cm/sec E/E' lat: 8.5 E/e' average: 9.7 MV dec time: 0.19 sec SV(LVOT): 90.2 ml Reading Physician:01:58 PM
[2019-08-25] MEDS: ACETAMINOPHEN 325 MG TABLET 650 MG PO (19:40)
[2019-08-25] MEDS: SODIUM CHLORIDE 0.9% FLUSH 10 ML IV (19:40)
[2019-08-25 21:07] LABS: Troponin I < 0.012 ng/mL (0.01-0.034)
[2019-08-25 22:28] LABS: Magnesium 2.3 mg/dL (1.6-2.3)
--- NOTE | 2019-08-25 22:34 | PM.EVENT ---
Event Note Date Patient Seen: 08/25/19 Time Patient Seen: 21:30 Event Note: Patient was noted by ICU to becoming bradycardic into the low 40s and dropping down to 39. Went in to see the patient and she was sitting in bed and relaxing. Alert and oriented x4. Did not detect any murmurs to the disposable says that the scope, heart rate was bradycardic. Requested orthostatic vitals. Laying down she was 147/87 with a heart rate of 45, sitting 152/101 with a heart rate of 57 and standing she was 138/97 with a heart rate of 84 and complaints of shortness of breath and at that time her oxygenation was at 99% on room air. Magnesium level was normal. I started her on normal saline at 125 mL per hour and put her on 2 L of O2 nasal cannula. Will continue to monitor.
[2019-08-25] MEDS: SODIUM CHLORIDE 0.9% 1,000 ML 125 ML IV (23:50)
[2019-08-25] MEDS: SODIUM CHLORIDE NASAL SPRAY 1 SPRAY NASAL (23:51)
[2019-08-26] VITALS (10 sets, daily range): BP systolic 113–138; BP diastolic 65–86; PULSE 44–60; RESP 16–18; TEMP 36.3–36.8; O2SAT 95–100
[2019-08-26] MEDS: NITROGLYCERIN 0.4 MG SL TAB SL (00:01)
[2019-08-26 03:07] LABS: COVID19 Sendout Not Detected (Not Detect)
--- NOTE | 2019-08-26 03:38 | PC.NURSE ---
Addendum entered by Andie Gonzalez R.N. 08/26/19 06:45: Pt states that she feels great this morning. Denies chest pain and SOB. Denies nausea. COVID19 negative this am. Pt dozing afte 0330. Original Note: 0000 Pt states that chest discomfort is tightness versus pain. Rates discomfort at 1/10. Nitro given per EMAR. Pt states that she had good relief from same. States that tightness has resolved. Denies nausea and SOB. RA sat 97%. Remains in SB.
[2019-08-26 06:20] LABS: Add Manual Diff / Slide Review NO; Basophils Absolute Auto 100 /uL (0-100); Basophils Percent Auto 1.3 % (0-2); Eosinophils Absolute Auto 300 /uL (0-450); Eosinophils Percent Auto 5.5 % (2-4); Hemoglobin 12.5 g/dL (12.0-16.0); Lymphocytes Absolute Auto 2100 /uL (1100-4500); Lymphocytes Percent Auto 33.9 % (25-40); Mean Corpuscular HGB Conc 33.7 % (30-36); Mean Corpuscular Hemoglobin 29.9 PG (26-34); Mean Corpuscular Volume 88.8 fL (80-100); Monocytes Absolute Auto 500 /uL (0-900); Monocytes Percent Auto 8.9 % (3-14); Neutrophils Absolute Auto 3100 /uL (1500-7000); Neutrophils Percent Auto 50.4 % (50-75); Platelet Count 194 X10^3/uL (150-400); Red Blood Cell Count 4.16 X10^6/uL (4.0-5.2); Red Cell Distribution Width 13.1 % (11.6-14.8); White Blood Cell Count 6.1 X10^3/uL (4.5-11.0)
[2019-08-26] MEDS: SODIUM CHLORIDE 0.9% 1,000 ML 125 ML IV (06:21)
[2019-08-26 06:27] LABS: Hemoglobin A1C% w Est Avg Glu 5.3 % (4.0-6.0)
[2019-08-26 06:30] LABS: Alanine Aminotransferase 12 IU/L (<35); Albumin 3.7 g/dL (3.5-5.0); Albumin Globulin Ratio 1.5 (1.0-2.8); Alkaline Phosphatase 54 U/L (38-126); Aspartate Aminotransferase 23 IU/L (14-36); BUN Creatinine Ratio 18.8 (6-22); Bilirubin Total 0.4 mg/dL (0.2-1.3); Bilirubin Unconjugated 0.4 mg/dL (0.0-1.1); Blood Urea Nitrogen 12 mg/dL (7-17); Calcium 9.1 mg/dL (8.4-10.2); Carbon Dioxide 27 mmol/L (22-32); Chloride 106 mmol/L (98-107); Cholesterol 215 mg/dL (140-199); Estimated Glomerular Filt Rate > 60.0 mL/min (>60); Globulin 2.5 g/dL (1.7-4.1); Glucose 95 mg/dL (80-110); HDL Cholesterol 78 mg/dL (40-60); HEMOLYSIS < 15 (0-50); LDL Cholesterol Calculated 122 mg/dL (<100); Magnesium 2.1 mg/dL (1.6-2.3); Potassium 4.7 mmol/L (3.4-5.1); Sodium 138 mmol/L (137-145); Total Protein 6.2 g/dL (6.3-8.2); Triglycerides 76 mg/dL (35-150)
[2019-08-26 06:59] LABS: TSH w/ Reflex to FT4 5.36 uIU/mL (0.47-4.68)
[2019-08-26 07:57] LABS: Free T4, Direct Thyroxine 1.08 ng/dL (0.78-2.19)
[2019-08-26] MEDS: SODIUM CHLORIDE 0.9% FLUSH 10 ML IV (08:27)
--- NOTE | 2019-08-26 10:45 | PC.NURSE ---
Addendum entered by Melisa Matthews R.N. 08/26/19 12:47: Returned from Stress test via WC at 1235. Echocardiogram at bedside at 1240. Addendum entered by Melisa Matthews R.N. 08/26/19 11:14: 1105: OFF the floor with Yuliet ESTRADA via WC for stress test. Original Note: Day shift note: Awake, alert, calm, and pleasant. Up OOB to BR independently. No C/O chest pain, dizziness, or SOB at rest or up to BR. Awaiting for Stress test and Echo. NPO. Tele: Sinus Zach HR 55. BP 126/78. Calls appropriately for staff assistance.
[2019-08-26] MEDS: ACETAMINOPHEN 325 MG TABLET 650 MG PO (13:38)
--- NOTE | 2019-08-26 15:20 | CM.DANOTE ---
DCP Brief Assessment Patient is a 64 year old female who was admitted on 08/25/19 for Chest Pain. Pt has MCR and PRE DIM for insurance and her PCP is Dr. Minor Swartz. EMR was reviewed. Per MD, pt to have stress test and Echo today and if pt has positive test then likely will need transfer to [facility] for heart cath procedure. SW attempted bedside assessment but pt was first off floor for stress test and then having Echo during second bedside assessment attempt. Patient resides in [place] with her . Plan: SW to follow after Echo and Stress Test results return to determine if pt will need hospital transfer vs stabilizing here and assessment for discharge planning needs. KWAN Casillas
--- NOTE | 2019-08-26 17:42 | P.DS_ITS ---
History of Present Illness History of Present Illness Date Patient Seen: 08/26/19 Time Patient Seen: 17:43 Chief complaint: chest pressure x3 days Narrative: Ceci Boss is a 64-year-old female with past medical history of hypertension, insomnia, depression who presented with worsening dyspnea with chest pressure on exertion over the past 3 days. Patient states that she has noticed over the past 3 days that when climbing up stairs or exerting herself she gets easily fatigued, with a chest tightness substernally, and shortness of breath. Occasionally she gets palpitations as well. She denies any diaphoresis or nausea, vomiting. She denies any radiation into her neck or jaw, into her left arm. She denies any cough, fever, chills, sputum production, headache, vision changes, orthopnea, syncope, lower extremity edema. Her father who has diabetes, heart disease, and end-stage kidney disease on dialysis had COVID-19 in June is still recovering, she has not been tested previously. In the ED, patient was mildly hypertensive, slightly bradycardic, but vitals were otherwise unremarkable. EKG x2 showed normal sinus rhythm with mild left axis deviation, no concerning ST depressions or elevations and no evidence of active ischemia. Chest x-ray was unremarkable. Laboratory evaluation showed an unremarkable CBC, normal coagulation studies, and an unremarkable chemistry evaluation including a negative troponin Discharge Providers Provider Date of admission: 08/25/19 14:18 Discharge Date: 08/26/19 Primary care physician: Minor Swartz DO Discharge provider: Dickson Carter DO Summary Hospital Course Hospital Course: Ceci Boss is a 64-year-old female with past medical history of hypertension, insomnia, depression who presented with worsening dyspnea with chest pressure on exertion over the past 3 days, concerning for stable angina. She underwent an echocardiogram and nuclear stress test which were both negative. She had no chest pain on exertion during her stress testing. 1. Chest pain, acute, present on admission, resolved. -symptoms concerning for cardiac ischemia with stable angina. COVID-19 testing was sent in the emergency room given family contact with confirmed case, result was negative. -troponin negative x2. EKG is unremarkable with normal sinus rhythm, mild left axis deviation, but no ST depression or elevation and no concerning evidence of ischemia. -echocardiogram was unremarkable. -nuclear stress testing was unremarkable -A1c and Tsh unremarkable. Lipid panel showed hyperlipidemia. Advised on diet and exercise, consider statin therapy as an outpatient. -recommend pulmonary function testing for further evaluation. Consider PPI trail, patient refused upon discharge. Differential includes arrythmia and if frequent episodes consider holter monitor. 2. Hypertension, present on admission -continue home lisinopril 3. Depression, stable -continue home fluoxetine Dispo: discharged home Exam Vital Signs (past 8 hours): - 08/26/19 12:00 08/26/19 13:47 08/26/19 16:00 Temperature Pulse Rate 60 Respiratory Rate 16 Blood Pressure 121/86 Pulse Oximetry 95 98 100 08/26/19 16:21 Temperature 97.4 F L Pulse Rate 58 L Respiratory Rate 16 Blood Pressure 138/73 Pulse Oximetry 100 Oxygen Delivery Method Room Air Oxygen Flow Rate 0 Narrative Exam Narrative: GENERAL APPEARANCE: Well developed, well nourished, in no acute distress. SKIN: Inspection of the skin reveals no rashes, ulcerations or petechiae. HEENT: Normocephalic atraumatic, extraocular muscles are intact, oropharynx is clear and mucous membranes are moist, neck is supple without adenopathy NECK: Supple and symmetric. There was no thyroid enlargement, and no tenderness, or masses were felt. CHEST: Normal AP diameter and normal contour without any kyphoscoliosis. LUNGS: Auscultation of the lungs revealed no wheezes, rhonchi, or rales. CARDIOVASCULAR: There was a regular rate and rhythm without any murmurs, gallops, rubs. Peripheral pulses were 2+ and symmetric. ABDOMEN: Soft and nontender with normal bowel sounds. No ascites was noted. MUSCULOSKELETAL: There was no tenderness or effusions noted. Muscle strength and tone were normal. EXTREMITIES: No cyanosis, clubbing or edema. NEUROLOGIC: Alert and oriented x 3. Normal affect. Gait was normal. Strength is +5/5 in the Upper Extremities and Lower Extremities Bilaterally. Sensation to touch was normal. Objective Labs Result Diagrams: 08/26/19 05:55 08/26/19 05:55 Labs: Laboratory Results - last 24 hr 08/25/19 08/25/19 08/25/19 13:05 20:35 20:35 WBC RBC Hgb Hct MCV MCH MCHC RDW Plt Count Neut % (Auto) Lymph % (Auto) [place] % (Auto) Eos % (Auto) Baso % (Auto) Neut # (Auto) Lymph # (Auto) [place] # (Auto) Eos # (Auto) Baso # (Auto) Sodium Potassium Chloride Carbon Dioxide BUN Creatinine Estimated GFR BUN/Creatinine Ratio Glucose Hemoglobin A1c Calcium Magnesium 2.3 Total Bilirubin Conjugated Bilirubin Unconjugated Bilirubin AST ALT Alkaline Phosphatase Troponin I < 0.012 Total Protein Albumin Globulin Albumin/Globulin Ratio Triglycerides Cholesterol LDL Cholesterol, Calc HDL Cholesterol TSH Free T4 COVID-19 PCR Not detected 08/26/19 08/26/19 08/26/19 05:55 05:55 05:55 WBC 6.1 RBC 4.16 Hgb 12.5 Hct 37.0 MCV 88.8 MCH 29.9 MCHC 33.7 RDW 13.1 Plt Count 194 Neut % (Auto) 50.4 Lymph % (Auto) 33.9 [place] % (Auto) 8.9 Eos % (Auto) 5.5 H Baso % (Auto) 1.3 Neut # (Auto) 3100 Lymph # (Auto) 2100 [place] # (Auto) 500 Eos # (Auto) 300 Baso # (Auto) 100 Sodium 138 Potassium 4.7 Chloride 106 Carbon Dioxide 27 BUN 12 Creatinine 0.64 Estimated GFR > 60.0 BUN/Creatinine Ratio 18.8 Glucose 95 Hemoglobin A1c 5.3 Calcium 9.1 Magnesium 2.1 Total Bilirubin 0.4 Conjugated Bilirubin 0.0 Unconjugated Bilirubin 0.4 AST 23 ALT 12 Alkaline Phosphatase 54 Troponin I Total Protein 6.2 L Albumin 3.7 Globulin 2.5 Albumin/Globulin Ratio 1.5 Triglycerides 76 Cholesterol 215 H LDL Cholesterol, Calc 122 H HDL Cholesterol 78 H TSH Free T4 COVID-19 PCR 08/26/19 05:55 WBC RBC Hgb Hct MCV MCH MCHC RDW Plt Count Neut % (Auto) Lymph % (Auto) [place] % (Auto) Eos % (Auto) Baso % (Auto) Neut # (Auto) Lymph # (Auto) [place] # (Auto) Eos # (Auto) Baso # (Auto) Sodium Potassium Chloride Carbon Dioxide BUN Creatinine Estimated GFR BUN/Creatinine Ratio Glucose Hemoglobin A1c Calcium Magnesium Total Bilirubin Conjugated Bilirubin Unconjugated Bilirubin AST ALT Alkaline Phosphatase Troponin I Total Protein Albumin Globulin Albumin/Globulin Ratio Triglycerides Cholesterol LDL Cholesterol, Calc HDL Cholesterol TSH 5.36 H Free T4 1.08 COVID-19 PCR Discharge Plan Discharge Plan Patient Disposition: Home Discharge comment: Your admitted to the hospital with chest pain and trouble breathing that started on exertion. Your COVID-19 testing was negative. Your chest x-ray was negative. Had a negative stress test and your symptoms improved. You should follow-up with her primary care provider for possible pulmonary function test to further evaluate. Total cholesterol was mildly elevated, you should work on your diet and exercise, however you may need to start a statin medication if this does not improve over time. Discharge orders & Medications Prescriptions: Continued adjuvant AS01B (PF)vial 1 of 2 [Shingrix Adjuvant Component-PF] suspension 0.5 ml IM ONCE Qty: 0.5 RF: 0 diph,pertuss(acel),tet vac(PF) [Adacel(Tdap Adolesn/Adult)(PF)] 2 Lf-(2.5-5-3-5 mcg)-5Lf/0.5 mL suspension 0.5 ml IM ONCE Qty: 0.5 RF: 0 lisinopril 20 mg tablet 20 mg PO DAILY Qty: 90 RF: 0 fluoxetine 10 mg tablet 10 mg PO DAILY Qty: 90 RF: 0 zolpidem 10 mg tablet 10 mg PO BEDTIME PRN (Reason: insomnia) Qty: 90 RF: 0 Follow up/Referrals: Minor Swartz DO [Primary Care Provider] - Discharge Health Status Health Concerns: Chest pain Diet/Activity/Treatments Diet: Diet as Tolerated Activity: As tolerated Visit Report/Discharge Packet Instructions: DI for Chest Pain Visit Report Forms: Patient Portal/API, Stroke Signs & Symptoms Discharge Data Primary Care Provider: Minor Swartz Attending Provider: Dickson Carter Admit Date/Time: 08/25/19 14:18 Discharges patient from system. Discharge Date/Time: 08/26/19 18:56 Quality VTE Deep Vein Thrombosis/Pulmonary Embolism Present on Admission: No
[2019-08-26] MEDS: KETOROLAC 30 MG/ML VIAL IV (17:58)
--- NOTE | 2019-09-02 08:23 | DI.NM.S_ITS ---
DATE OF SERVICE: PROCEDURE: Exercise perfusion study. DATE OF STUDY: 08/26/2019 INDICATIONS: Chest pain with underlying hypertension. RADIOPHARMACEUTICAL: 24.3 millicurie technetium-99m Myoview IV was injected at stress. Please note this is exercise stress test study only. CARDIAC STRESS: The patient underwent exercise perfusion study under the supervision of an attending staff using standard Rishabh protocol. She walked on Rishabh protocol for 7 minutes and 38 seconds, achieved 93 percent of target heart rate with normal blood pressure and heart rate response. The patient achieved 10.1 METS of workload. Functional aerobic impairment -21 percent. No anginal symptoms. Baseline rhythm was sinus or sinus bradycardia. During stress, no convincing ischemic changes or significant arrhythmias. RAW DATA: There is some breast shadow seen. GATED STUDY: Stress LV ejection fraction 81 percent. Stress end-diastolic volume 75 mL. Lung heart ratio is 0.31, which is within normal limits. I do not see any obvious wall motion abnormalities. MYOCARDIAL PERFUSION SCAN: Stress supine images revealed a small size mildly decreased perfusion of anterior apex which got improved during prone images suggestive of breast tissue attenuation artifact. No convincing ischemia or infarction pattern. CONCLUSION: I will call this study likely a normal myocardial perfusion study with evidence of breast tissue attenuation artifact which got improved during prone images. Good exercise tolerance. Normal hemodynamic response. No ischemic EKG changes. No significant arrhythmias. Overall this is a low risk myocardial perfusion scan. Karyn Ceci - HENRIETTA/brian/north doc#: [id number]/job#: [id number] dd: 08/26/2019 12:58:00 dt: 08/26/2019 13:28:00 DICTATING MD/COPIES TO: Marianna Stevenson MD COPIES MNE: NOLAN;
== END 2019-08-26 18:56 | disposition home or self-care (01) ==
LOC: ED 12:12 → AC 14:18
PROVIDERS: Emergency Medicine; Nurse Practitioner Family; Admitting Provider Internal Medicine; Emergency Provider Nurse Practitioner; PCP Family Medicine; Referring Provider Nurse Practitioner; Visit Provider Internal Medicine
DX: R07.9 Chest pain, unspecified (principal); I10 Essential (primary) hypertension; F32.9 Major depressive disorder, single episode, unspecified; G47.00 Insomnia, unspecified; Z20.828 Contact with and (suspected) exposure to other viral communicable diseases
CPT/HCPCS: 36415; 71045; 78451; 80048; 80053; 80061; 80076; 82550; 82553; 83036; 83690; 83735; 84439; 84443; 84484; 85025; 85610; 85730; 87635; 93005; 93017; 93306; 96361; 96374; 99285; G0378; A9502; J1885

== ENCOUNTER → 2019-10-01 10:41 | Outpatient (CLI) | payer MEDICARE, OTHER, SELFPAY ==
[2019-08-25 16:40] VITALS: BMI 24.0
[2019-10-01 12:58] LABS: Free T3, Triiodothyronine Free 3.11 pg/mL (2.77-5.27); Free T4, Direct Thyroxine 0.86 ng/dL (0.78-2.19)
[2019-10-01 13:11] LABS: Thyroid Stimulating Hormone 1.79 uIU/mL (0.47-4.68)
== END ==
PROVIDERS: PCP Family Medicine; Referring Provider Family Medicine; Visit Provider Family Medicine
DX: R79.89 Other specified abnormal findings of blood chemistry (principal)
CPT/HCPCS: 36415; 84439; 84443; 84481

== ENCOUNTER → 2022-05-26 08:39 | Outpatient (CLI) | payer MEDICARE, OTHER, SELFPAY ==
[2022-03-17 10:48] VITALS: BMI 24.0
[2022-05-26 09:15] LABS: Add Manual Diff / Slide Review NO; Basophils Absolute Auto 100 /uL (0-100); Basophils Percent Auto 1.5 % (0-2); Eosinophils Absolute Auto 300 /uL (0-450); Eosinophils Percent Auto 5.7 % (2-4); Hematocrit 40.3 % (36-46); Hemoglobin 13.1 g/dL (12.0-16.0); Lymphocytes Absolute Auto 1700 /uL (1100-4500); Lymphocytes Percent Auto 30.6 % (25-40); Mean Corpuscular HGB Conc 32.4 % (30-36); Mean Corpuscular Hemoglobin 28.8 PG (26-34); Mean Corpuscular Volume 88.9 fL (80-100); Monocytes Absolute Auto 500 /uL (0-900); Monocytes Percent Auto 8.9 % (3-14); Neutrophils Absolute Auto 3000 /uL (1500-7000); Neutrophils Percent Auto 53.3 % (50-75); Platelet Count 232 X10^3/uL (150-400); Red Blood Cell Count 4.53 X10^6/uL (4.0-5.2); Red Cell Distribution Width 13.5 % (11.6-14.8); White Blood Cell Count 5.6 X10^3/uL (4.5-11.0)
[2022-05-26 09:28] LABS: Alanine Aminotransferase 29 IU/L (<35); Albumin 4.2 g/dL (3.5-5.0); Albumin Globulin Ratio 1.5 (1.0-2.8); Alkaline Phosphatase 68 U/L (38-126); Aspartate Aminotransferase 30 IU/L (14-36); BUN Creatinine Ratio 20.9 (6-22); Bilirubin Total 0.5 mg/dL (0.2-1.3); Blood Urea Nitrogen 14 mg/dL (7-17); Calcium 9.3 mg/dL (8.4-10.2); Carbon Dioxide 29 mmol/L (22-32); Chloride 99 mmol/L (98-107); Cholesterol 256 mg/dL (140-199); Estimated Glomerular Filt Rate > 60 mL/min (>60); Globulin 2.8 g/dL (1.7-4.1); Glucose 87 mg/dL (80-110); HDL Cholesterol 89 mg/dL (40-60); HEMOLYSIS < 15 (0-50); LDL Cholesterol Calculated 149 mg/dL (<100); Potassium 4.9 mmol/L (3.4-5.1); Sodium 136 mmol/L (137-145); Triglycerides 90 mg/dL (35-150)
[2022-05-26 10:01] LABS: TSH w/ Reflex to FT4 2.39 uIU/mL (0.47-4.68)
== END ==
PROVIDERS: PCP Family Medicine; Referring Provider Family Medicine; Visit Provider Family Medicine
DX: E78.00 Pure hypercholesterolemia, unspecified (principal); I10 Essential (primary) hypertension; R79.89 Other specified abnormal findings of blood chemistry
CPT/HCPCS: 36415; 80053; 80061; 84443; 85025

== ENCOUNTER → 2022-06-23 09:44 | Outpatient (CLI) | payer MEDICARE, OTHER, SELFPAY ==
[2022-03-17 10:48] VITALS: BMI 24.0
--- NOTE | 2022-06-23 10:11 | DI.DEXA.S_ITS ---
Indication: postmenopausal; screening for osteoporosis; Referring Provider: FELECIA SALMON Study: Bone densitometry was performed. Exam Date: June 23, 2022 Accession number: [id number] Bone Density: Region BMD T-score Z-score Classification AP Spine(L1-L4) 0.917 -1.2 0.8 Osteopenia Femoral Neck (Left) 0.639 -1.9 -0.2 Osteopenia Total Hip (Left) 0.813 -1.1 0.3 Osteopenia Femoral Neck (Right) 0.591 -2.3 -0.7 Osteopenia Total Hip (Right) 0.782 -1.3 0.1 Osteopenia Total Hip Mean 0.797 -1.2 0.2 Osteopenia World Health Organization criteria for BMD impression classify patients as: Normal (T-score at or above -1.0), Osteopenia (T-score between -1.0 and -2.5), or Osteoporosis (T-score at or below -2.5). 10-year Fracture Risk(1): Major Osteoporotic Fracture 12% Hip Fracture 2.4% Reported Risk Factors: [place] (), Neck BMD=0.591, BMI=23.0 (1) FRAX(R) Version 3.08. Fracture probability calculated for an untreated patient. Fracture probability may be lower if the patient has received treatment. Impression: The patient has low bone mass, based on the Right Femoral Neck T-score. The patient has an estimated ten-year risk of hip fracture of 2.4% and an estimated ten-year risk of major fracture of 12%, based on the WHO FRAX algorithm. Discussion: BONE DENSITY IS LOW AT ONE OR MORE SKELETAL SITES. This patient's lowest T-score is low at one or more skeletal sites. It meets the World Health Organization's (WHO) criteria for ?low bone mass? (T-score between -1.0 and -2.5). The patient's 10-year risk of fracture as calculated by FRAX is less than the threshold where pharmacological therapy is recommended by the National Osteoporosis Foundation (NOF). However, all treatment decisions require clinical judgment and consideration of individual patient factors, including patient preferences, comorbidities, previous drug use, risk factors not captured in the FRAX model (e.g., frailty, falls, vitamin D deficiency, increased bone turnover, interval significant decline in bone density) and possible under or overestimation of fracture risk by FRAX. The patient should follow a healthful lifestyle (good nutrition with adequate calcium and vitamin D, and appropriate weight-bearing exercise). Follow-Up: Consider repeating this study in 2 to 3 years to reassess this patient's status, or sooner if there is some new clinical indication. Reported by: Karina Almendarez M.D. on 06/23/2022 10:22:00 AM.
== END ==
PROVIDERS: PCP Family Medicine; Referring Provider Family Medicine; Visit Provider Family Medicine
DX: Z13.820 Encounter for screening for osteoporosis (principal); Z78.0 Asymptomatic menopausal state; M85.851 Other specified disorders of bone density and structure, right thigh
CPT/HCPCS: 77080

== ENCOUNTER → 2023-09-27 08:40 | Outpatient (CLI) | payer MEDICARE, OTHER, SELFPAY ==
[2022-03-17 10:48] VITALS: BMI 24.0
[2023-09-27 11:26] LABS: Add Manual Diff / Slide Review NO; Basophils Absolute Auto 100 /uL (0-100); Eosinophils Absolute Auto 200 /uL (0-450); Eosinophils Percent Auto 4.3 % (2-4); Hematocrit 39.4 % (36-46); Hemoglobin 13.3 g/dL (12.0-16.0); Lymphocytes Absolute Auto 1600 /uL (1100-4500); Lymphocytes Percent Auto 30.3 % (25-40); Mean Corpuscular HGB Conc 33.8 % (30-36); Mean Corpuscular Hemoglobin 29.9 PG (26-34); Mean Corpuscular Volume 88.4 fL (80-100); Monocytes Absolute Auto 400 /uL (0-900); Monocytes Percent Auto 8.3 % (3-14); Neutrophils Absolute Auto 3000 /uL (1500-7000); Neutrophils Percent Auto 55.1 % (50-75); Platelet Count 223 X10^3/uL (150-400); Red Blood Cell Count 4.46 X10^6/uL (4.0-5.2); Red Cell Distribution Width 13.1 % (11.6-14.8); White Blood Cell Count 5.4 X10^3/uL (4.5-11.0)
[2023-09-27 11:47] LABS: Alanine Aminotransferase 16 IU/L (<35); Albumin 4.3 g/dL (3.5-5.0); Albumin Globulin Ratio 1.7 (1.0-2.8); Alkaline Phosphatase 62 U/L (38-126); Aspartate Aminotransferase 27 IU/L (14-36); BUN Creatinine Ratio 22.4 (6-22); Bilirubin Total 0.5 mg/dL (0.2-1.3); Blood Urea Nitrogen 17 mg/dL (7-17); Calcium 9.2 mg/dL (8.4-10.2); Carbon Dioxide 31 mmol/L (22-32); Chloride 105 mmol/L (98-107); Cholesterol 276 mg/dL (140-199); Estimated Glomerular Filt Rate > 60 mL/min (>60); Globulin 2.5 g/dL (1.7-4.1); Glucose 98 mg/dL (80-110); HDL Cholesterol 90 mg/dL (40-60); HEMOLYSIS < 15 (0-50); LDL Cholesterol Calculated 168 mg/dL (<100); Potassium 4.9 mmol/L (3.4-5.1); Sodium 138 mmol/L (137-145); Total Protein 6.8 g/dL (6.3-8.2); Triglycerides 91 mg/dL (35-150)
== END ==
PROVIDERS: PCP Family Medicine; Referring Provider Family Medicine; Visit Provider Family Medicine
DX: E78.5 Hyperlipidemia, unspecified (principal); R79.89 Other specified abnormal findings of blood chemistry; I10 Essential (primary) hypertension
CPT/HCPCS: 36415; 80053; 80061; 84443; 85025

== ENCOUNTER → 2024-10-02 09:19 | Outpatient (CLI) | payer OTHER, SELFPAY ==
[2022-03-17 10:48] VITALS: BMI 24.0
[2024-10-02 10:22] LABS: Add Manual Diff / Slide Review NO; Basophils Absolute Auto 100 /uL (0-100); Basophils Percent Auto 2.1 % (0-2); Eosinophils Absolute Auto 200 /uL (0-450); Eosinophils Percent Auto 4.5 % (2-4); Hematocrit 38.7 % (36-46); Hemoglobin 12.8 g/dL (12.0-16.0); Lymphocytes Absolute Auto 1700 /uL (1100-4500); Lymphocytes Percent Auto 29.6 % (25-40); Mean Corpuscular HGB Conc 33.1 % (30-36); Mean Corpuscular Hemoglobin 29.4 PG (26-34); Mean Corpuscular Volume 88.7 fL (80-100); Monocytes Absolute Auto 400 /uL (0-900); Monocytes Percent Auto 7.1 % (3-14); Neutrophils Absolute Auto 3200 /uL (1500-7000); Neutrophils Percent Auto 56.7 % (50-75); Platelet Count 178 X10^3/uL (150-400); Red Blood Cell Count 4.36 X10^6/uL (4.0-5.2); Red Cell Distribution Width 13.5 % (11.6-14.8); White Blood Cell Count 5.6 X10^3/uL (4.5-11.0)
[2024-10-02 10:37] LABS: Alanine Aminotransferase 34 IU/L (<35); Albumin 4.1 g/dL (3.5-5.0); Alkaline Phosphatase 67 U/L (38-126); Aspartate Aminotransferase 38 IU/L (14-36); Bilirubin Total 0.4 mg/dL (0.2-1.3); Blood Urea Nitrogen 14 mg/dL (7-17); Calcium 9.4 mg/dL (8.4-10.2); Carbon Dioxide 30 mmol/L (22-32); Chloride 103 mmol/L (98-107); Estimated Glomerular Filt Rate > 60 mL/min (>60); Globulin 2.1 g/dL (1.7-4.1); Glucose 95 mg/dL (70-99); HEMOLYSIS < 15 (0-50); Potassium 4.8 mmol/L (3.4-5.1); Sodium 137 mmol/L (137-145); Total Protein 6.2 g/dL (6.3-8.2)
[2024-10-02 11:09] LABS: TSH w/ Reflex to FT4 2.04 uIU/mL (0.47-4.68)
== END ==
PROVIDERS: PCP Family Medicine; Referring Provider Family Medicine; Visit Provider Family Medicine
DX: E78.00 Pure hypercholesterolemia, unspecified (principal)
CPT/HCPCS: 36415; 80053; 84443; 85025